=== PATIENT | female | born 1935 | race Caucasian/White ===

== ENCOUNTER → 2017-05-06 | Outpatient (CLI) | payer OTHER | LOC: BMCIMAGING 10:08 | PROVIDERS: ATTEND Internal Medicine | DX: R05 Cough (principal); R09.89 Other specified symptoms and signs involving the circulatory and respiratory systems; I11.9 Hypertensive heart disease without heart failure; C91.Z0 Other lymphoid leukemia not having achieved remission ==

== ENCOUNTER → 2017-09-01 | Outpatient (CLI) | payer OTHER | LOC: FIMAGING 08:40 | PROVIDERS: ATTEND Internal Medicine Hematology & Oncology | DX: M81.0 Age-related osteoporosis without current pathological fracture (principal); C91.Z0 Other lymphoid leukemia not having achieved remission; C80.1 Malignant (primary) neoplasm, unspecified; C83.89 Other non-follicular lymphoma, extranodal and solid organ sites ==

== ENCOUNTER → 2018-08-20 | Outpatient (CLI) | payer OTHER | LOC: FIMAGING 10:34 | PROVIDERS: ATTEND Internal Medicine | DX: J98.4 Other disorders of lung (principal); J98.11 Atelectasis; J47.9 Bronchiectasis, uncomplicated; E04.1 Nontoxic single thyroid nodule ==

== ENCOUNTER 2018-10-12 12:13 | Day surgery (SDC) | payer OTHER ==
[2018-10-12] MEDS ORDERED: LIDOCAINE 1% 2 ML INJ ID PRN (12:30)
[2018-10-12] MEDS ORDERED: ALBUTEROL 3 ML DEYVIAL IH ONE ×2 (12:30→14:00)
[2018-10-12] MEDS ORDERED: ALBUTEROL 3 ML DEYVIAL ONE (13:11)
[2018-10-12] MEDS ORDERED: fentaNYL 100 MCG/2 ML INJ ONE (13:11)
[2018-10-12] MEDS ORDERED: EPINEPHrine 1 MG/ML INJ ONE (13:11)
[2018-10-12] MEDS ORDERED: MIDAZOLAM 2 MG/2 ML VIAL ONE (13:11)
[2018-10-12] MEDS ORDERED: LIDOCAINE 1% 300 MG/30 ML SDV ONE (13:14)
[2018-10-12] MEDS ORDERED: NALOXONE HCL 0.4 MG/ML INJ ONE (13:16)
[2018-10-12] MEDS ORDERED: FLUMAZENIL 0.5 MG/5 ML MDV IVP ONE (13:16)
--- NOTE | 2018-10-12 13:40 | PDHPUP ---
History & Physical Update H&P update statement: This history and physical update is based on an assessment of the patient which was completed after admission or registration (within 24 hours), but prior to the surgery/procedure. H&P update: H&P reviewed & patient examined, no change in patient's condition since H&P completed
--- NOTE | 2018-10-12 13:40 | PDPROPOC ---
Sedation Plan of Care Sedation Plan of Care: vital signs stable, mental status noted, patient educated of risks, benefits, alternatives, patient can tolerate sedation ASA Classification: ASA 2 Planned drugs: fentanyl, midazolam Mallampati Score: Class 2 Mallampati Reference Image: Patient passed 3-3-2 rule?: Yes
[2018-10-12] MEDS ORDERED: MIDAZOLAM 2 MG/2 ML VIAL IVP ONE (14:00)
[2018-10-12] MEDS ORDERED: LIDOCAINE 4% 5 ML AMP IH ONE (14:00)
[2018-10-12] MEDS ORDERED: LIDOCAINE 1% 300 MG/30 ML SDV IH ONE (14:00)
[2018-10-12] MEDS ORDERED: fentaNYL 100 MCG/2 ML INJ IVP ONE (14:00)
--- NOTE | 2018-10-12 14:08 | BVPULMO ---
[facility] Surgical Services- Pulmonology Patient Name: Abbie Parrish Procedure Date: 10/12/2018 1:01 PM Patient Type: Outpatient Attending MD/ER Physician: Thad Liang MD Procedure: Bronchoscopy Indications: Bronchiectasis Providers: Thad Liang MD Medicines: Fentanyl 100 mcg IV, Midazolam 4 mg IV, Lidocaine 1% applied to cords 2 mL, Lidocaine 1% applied to the tracheobronchial tree 4 mL, Oxygen 9 L/min Complications: No immediate complications Procedure: After informed consent, a time out was performed. N95 masks were worn, and the procedure was done in a negative pressure room. The patient was given appropria te topical anesthesia and intravenous sedation. The fiberopic bronchoscope was pas sed via a bite block orally into the larynx and subsequently into the lower trachea bronchial tree. Throughout the procedure, the patient's blood pressure, pulse, and oxygen saturations were monitored continuously. The Bronchoscope (Video) was introduced through the mouth and advanced to the tracheobronchial tree. The procedure was accomplished without difficulty. The patient tolerated the proced ure fairly well. The total duration of the procedure was 24 minutes. Findings: Bilateral Lung Abnormalities: Notable, mucoid secretions were found throughout the tracheobronchial tree. They were not obstructing the airway. BAL was performed in the [facility] lateral segment (B4) and in the [facility] medial segment (B5) of the lung and sent for cell count, bacterial culture, viral smears & culture, and fungal & AFB ramona lysis and cytology and routine cytology. 60 mL of fluid were instilled. 40 mL were returned. The return was bloody. Mucous plugs were present in the return fluid. Post Op Diagnosis: - Bronchiectasis - Notable, mucoid secretions were found throughout the tracheobronchial tree. - Bronchoalveolar lavage was performed. Estimated Blood Loss: Estimated blood loss: none. Recommendation: - Follow up with bronchoscopist in 1 month. Attending Participation: I personally performed the entire procedure. Thad Liang MD Thad Liang MD 10/12/2018 2:07:56 PM This report has been signed electronicallyThomas MD Garth Number of Addenda: 0 Note Initiated On: 10/12/2018 1:01 PM [email or web address]
[2018-10-12 15:37] VITALS: BP 123/73
== END 2018-10-12 15:38 | disposition home or self-care (01) ==
LOC: FSGY 12:13
PROVIDERS: ATTEND Internal Medicine Pulmonary Disease
PROC: 0B958ZX Drainage of Right Middle Lobe Bronchus, Via Natural or Artificial Opening Endoscopic, Diagnostic (ICD-10-PCS; principal; 2018-10-12 14:00)
DX: J47.9 Bronchiectasis, uncomplicated (principal); R05 Cough; C91.Z0 Other lymphoid leukemia not having achieved remission; I10 Essential (primary) hypertension; K21.9 Gastro-esophageal reflux disease without esophagitis; E21.0 Primary hyperparathyroidism; M81.0 Age-related osteoporosis without current pathological fracture
CPT/HCPCS: J0171; J2250; J2310; J3010; J7613

== ENCOUNTER → 2019-03-01 | Outpatient (CLI) | payer OTHER ==
[~2019-03-01] MED LIST: IOPAMIDOL (ISOVUE 370) 100 ML BTL IV ONE
== END ==
LOC: FIMAGING 09:04
PROVIDERS: ATTEND Surgery
DX: T82.598A Other mechanical complication of other cardiac and vascular devices and implants, initial encounter (principal)
CPT/HCPCS: 76000; Q9967